=== PATIENT | male | born 1990 | race Caucasian/White ===

== ENCOUNTER 2022-12-13 19:53 | Emergency (ER) | payer BC ==
[2022-12-13] MEDS ORDERED: Lidocaine 1% 10 ML MDV INJECT ONE (20:17)
== END 2022-12-13 21:35 | disposition home or self-care (01) ==
LOC: VM.ED 19:53
DX: S61.011A Laceration without foreign body of right thumb without damage to nail, initial encounter (principal); W23.0XXA Caught, crushed, jammed, or pinched between moving objects, initial encounter
CPT/HCPCS: 12002; 99282; J3490